=== PATIENT | female | born 1950 | race Caucasian/White ===

== ENCOUNTER 2017-09-07 14:32 | Observation (INO) ==
[2017-09-07 15:50] LABS: Basophils # 0.1 K/mcL (0.0-0.2); Basophils % 0.7 %; Eosinophils # 0.2 K/mcL (0.0-0.6); Eosinophils % 1.8 %; Hematocrit 44.2 % (35.3-44.9); Hemoglobin 13.9 g/dL (11.5-15.4); Immature Granulocytes % 0.2 % (0-4); Lymphocytes # 1.8 K/mcL (0.6-4.6); Lymphocytes % 20.1 %; Mean Corpuscular HGB Conc 31.4 g/dL (31.6-35.5); Mean Corpuscular Hemoglobin 28.1 pg (28.0-33.3); Mean Corpuscular Volume 89.3 fL (83.0-100.0); Mean Platelet Volume 10.3 fL (9.4-12.4); Monocytes # 0.7 K/mcL (0.0-1.3); Monocytes % 8.2 %; Platelet Count 289 K/mcL (140-400); Red Blood Count 4.95 M/mcL (3.82-4.97); Red Cell Distribution Width 13.7 % (11.5-14.5)
[2017-09-07 16:03] LABS: Carbon Dioxide 28 mEq/L (23-29); Chloride 105 mEq/L (98-107); Potassium 3.9 mEq/L (3.5-5.1); Sodium 138 mEq/L (136-145)
[2017-09-07 16:09] LABS: BUN/Creatinine Ratio 19 (6-26); Blood Urea Nitrogen 17 mg/dL (8-23); Glucose 89 mg/dL (70-105); Osmolality,Calculated 287 (280-300); eGFR For African Americans > 60 (> 60); eGFR For Non-African Americans > 60 (> 60)
[2017-09-07] MEDS ORDERED: Aspirin 81 MG TAB.CHEW PO ONE (17:14)
--- NOTE | 2017-09-07 17:26 | Emergency Department Note ---
Disposition Clinical Impression: Chest pain Qualifiers: Chest pain type: unspecified Qualified Code(s): R07.9 - Chest pain, unspecified Disposition: Admitted As Inpatient Condition: Good Referrals: Gi Greene MD [Primary Care Provider] - Forms: ED Satisfaction Letter Time of Disposition: 17:32 Chest Pain HPI - General Chief Complaint: ED Chest Pain Stated Complaint: CP x2 weeks Time Seen by Provider: 09/07/17 16:20 Source: patient Mode of arrival: ambulatory Limitations: no limitations Vital Signs Reviewed: Yes Nursing Notes Reviewed: Yes - History of Present Illness HPI Narrative: 67-year-old with a history of chest pain for last 2 weeks off and on. Today the pain was worse so she took nitroglycerin that she had previously and the pain got better. Patient states she had a stress test about 3 years ago nothing since. She had a catheter about 16 years ago that showed some disease. Pt complaint: chest pain Onset (ago): week(s) Duration: intermittent (2) Onset: during rest, during exertion Pain Location: substernal, left chest Severity: moderate Severity scale (1-10): 4 Quality: tightness, aching, heaviness Pain Radiation: none Improves with: nitroglycerin Worsens with: nothing Associated symptoms: Denies: fever, cough Treatments prior to arrival chest pain: nitroglycerin - Related Data Allergies Allergy/AdvReac Type Severity Reaction Status Date / Time Iodinated Contrast- Oral and Allergy Hives Verified 09/07/17 14:45 IV Dye metronidazole [From Flagyl] Allergy Hives Verified 09/07/17 14:45 prednisone Allergy Hives Verified 09/07/17 14:45 Sulfa (Sulfonamide Allergy Hives Verified 09/07/17 14:45 Antibiotics) All systems ED: reviewed and negative except as stated. Constitutional: Denies: fever, chills, weakness, weight change Eyes: Denies: eye pain, eye discharge, vision change ENT ED: Denies: ear pain, throat pain, dental pain, hearing loss, epistaxis, congestion, dysphagia Cardiovascular: Reports: chest pain. Denies: palpitations, dyspnea on exertion , edema, syncope Respiratory: Denies: cough, dyspnea, wheezes, hemoptysis, stridor Gastrointestinal: Denies: abdominal pain, nausea, vomiting, diarrhea, constipation, hematemesis, melena, hematochezia Genitourinary: Denies: dysuria, frequency, hematuria, discharge Musculoskeletal: Denies: back pain, neck pain, arthralgia, myalgia Integumentary: Denies: rash, abrasion, lesions Neurological: Denies: headache, weakness, numbness, paresthesias, confusion, abnormal gait, vertigo Psychiatric: Denies: anxiety, depression, suicidal thoughts, homicidal thoughts , auditory hallucinations, visual hallucinations Endocrine: Denies: fatigue Hematological/Lymphatic: Denies: easy bleeding, easy bruising Allergic/Immunologic: Denies: facial swelling, urticaria Chest Pain PMH - Past Medical History Medical history: Reports: fibromyalgia, GERD, thyroid disease - Social History Smoking Status: Never smoker Physical Exam - General Limitations: no limitations General appearance: alert, in no apparent distress - Head Head exam: atraumatic, normocephalic, normal inspection - Eye Eye exam: Present: normal appearance, PERRL, EOMI - ENT ENT exam: normal exam, normal oropharynx, mucous membranes moist - Neck Neck exam: Present: normal inspection, full ROM, trachea midline - Chest Chest inspection: Present: normal inspection, symmetric chest wall rise - Respiratory Respiratory exam: Present: normal lung sounds bilaterally - Cardiovascular Cardiovascular exam: Present: regular rate, normal rhythm, normal heart sounds - Abdominal Exam Abdominal exam: Present: soft, Non-Tender. Absent: tenderness, distention, guarding, rebound, rigidity - Extremities Exam Extremities exam: Present: normal inspection, full ROM. Absent: tenderness, pedal edema - Expanded Lower Extremity Exam Neurovascular/Tendon exam: Absent: motor deficit, sensory deficit, tendon deficit Gait: observed and normal - Back Exam Back exam: Present: normal inspection, full ROM. Absent: tenderness - Neurological Exam Neurological exam: Present: alert, oriented X3 - Psychiatric Psychiatric exam: Present: normal affect, normal mood - Skin Skin exam: Present: warm, dry, intact, normal color Course - Reevaluation(s) Reevaluation #1: 67-year-old with no previous history comes in complaining of a two-week period in which she's had recurrent chest pain not really exertionally related. She's had no recent cardiac workup. Factors include age. Her description is worrisome for cardiac disease as she has a heaviness or tightness in her chest. She did take nitroglycerin which improved her chest pain today. Time: 17:32 - Consultations Consultation #1: Discussed with , admit. Time: 17:32 Vital Signs Temperature 98.4 F 09/07/17 14:38 Pulse Rate 81 09/07/17 14:38 Respiratory Rate 18 09/07/17 14:38 Blood Pressure 127/79 09/07/17 14:38 O2 Sat by Pulse Oximetry 96 09/07/17 14:38 Temperature 98.4 F 09/07/17 14:38 Pulse Rate 80 09/07/17 17:36 Respiratory Rate 16 09/07/17 17:36 Blood Pressure 127/73 09/07/17 17:36 O2 Sat by Pulse Oximetry 98 09/07/17 17:36 Oxygen Delivery Oxygen Delivery Room Air Chest Pain - Lab Data Lab results reviewed: Yes I reviewed the patient's lab results. Result diagrams: 09/07/17 15:34 09/07/17 15:34 Lab Results 09/07/17 09/07/17 09/07/17 Range/Units 15:34 15:34 15:34 WBC 8.8 (4.3-11.1) K/mcL RBC 4.95 (3.82-4.97) M/mcL Hgb 13.9 (11.5-15.4) g/dL Hct 44.2 (35.3-44.9) % MCV 89.3 (83.0-100.0) fL MCH 28.1 (28.0-33.3) pg MCHC 31.4 L (31.6-35.5) g/dL RDW 13.7 (11.5-14.5) % Plt Count 289 (140-400) K/mcL MPV 10.3 (9.4-12.4) fL Immature Gran % 0.2 (0-4) % Seg Neutrophils % 69.0 % Lymphocytes % 20.1 % Monocytes % 8.2 % Eosinophils % 1.8 % Basophils % 0.7 % Neutrophils # 6.0 (1.6-8.9) K/mcL Lymphocytes # 1.8 (0.6-4.6) K/mcL Monocytes # 0.7 (0.0-1.3) K/mcL Eosinophils # 0.2 (0.0-0.6) K/mcL Basophils # 0.1 (0.0-0.2) K/mcL Sodium 138 (136-145) mEq/L Potassium 3.9 (3.5-5.1) mEq/L Chloride 105 (98-107) mEq/L Carbon Dioxide 28 (23-29) mEq/L BUN 17 (8-23) mg/dL Creatinine 0.91 (0.60-1.20) mg/dL Est GFR ( Amer) > 60 (> 60) Est GFR (Non-Af Amer) > 60 (> 60) BUN/Creatinine Ratio 19 (6-26) Glucose 89 (70-105) mg/dL Calculated Osmolality 287 (280-300) Calcium 9.0 (8.6-10.3) mg/dL Troponin I < 0.03 (< 0.04) ng/mL - Radiology Data Radiology results reviewed: Yes I reviewed the patient's radiology results. Chest X-Ray 09/07/17 14:46 IMPRESSION: No acute cardiopulmonary findings. D/ / Lisa White MD / Lisa White MD Interpreting Provider: Lisa White MD - EKG Data EKG attestation: Yes I reviewed and interpreted this EKG. EKG shows normal: sinus rhythm Rate: normal Rhythm: NSR Interpretation: no acute changes Heart Score - Score History: Moderately Suspicious EKG: Non Specific repolarisation Disturbance Age: Greater than 65 Risk Factors: 1-2 risk factors Troponin: Less than normal limit HEART Score Total: 5
[2017-09-07] MEDS ORDERED: Nitroglycerin 0.4 MG TAB.SUBL SL PRN (23:14)
--- NOTE | 2017-09-07 23:39 | Internal Med History&Physical ---
<Lee Ann Castro - Last Filed: 09/07/17 23:47> Date of Encounter: 09/07/17 Time of Encounter: 23:19 Assessment and Plan (1) Chest pain Current visit: Yes Status: Acute The patient is [id number] troponin negative we will continue to trend Continuous cardiac monitoring Cardiac echo Aspirin, statin-we will check lipid profile Cardiac stress in a.m.-nothing by mouth after midnight Nitroglycerin as needed for chest pain Qualifiers: Chest pain type: unspecified Qualified Code(s): R07.9 - Chest pain, unspecified (2) Thyroid disease Current visit: No Status: Chronic We will check TSH and continue with Synthroid (3) GERD (gastroesophageal reflux disease) Current visit: No Status: Chronic Continue with Prilosec Qualifiers: Esophagitis presence: esophagitis presence not specified Qualified Code(s) : K21.9 - Gastro-esophageal reflux disease without esophagitis Internal Medicine - H&P: HPI Chief complaint: CP Admitted From: Home History of present illness: Ms. Beckham is a 67 year old female past history of fibromyalgia GERD IBS arthritis and thyroid disease. Patient has been experiencing midsternal nonradiating chest pain which she describes as sharp. The pain has been recurrent nonexertional with associated symptoms of shortness of breath and nausea. There are no aggravating factors, she states it has improved with taking Xanax and going to sleep. Today she continued to experience chest pain she described as a heaviness pressure which staining in her left breast nonradiating she did have some nausea. She did take nitroglycerin which did ease her pain. She denies any past cardiac history she did have a stress test approximately 3 years ago which she was unable to complete she states she had a cardiac catheterization 16 years ago She presented to the ER with the above complaints. ER workup was essentially negative troponin 0.03 negative chest x- ray EKG normal sinus rhythm. She has been admitted for further work up evaluation. Patient denies any chest pain shortness of breath she is healing with his hemoptysis time. Did review this case with Dr. Lara who did agree with plan Past Med Surg Social Fam HX - Past Medical History Medical history: fibromyalgia, GERD, thyroid disease Psychiatric history: no psych history - Past Surgical History Surgical History: herniorrhaphy - Social History Smoking Status: Never smoker Smokeless Tobacco Status: No Alcohol use: none Drug use: none - Family History Mother Living Status: Cause of : cancer Hx Family Cardiac Disorders: Yes (htn) Hx Family Respiratory Disorders: No Hx Family Cancer: Yes Hx Family GI Disorders: No Hx Family Genitourinary Disorders: No Hx Family Endocrine Disorder: No Hx Family Musculoskeletal Disorders: No Hx Family Neuromuscular Disorders: No Hx Family Neurologic Disorders: No Hx Family HEENT Disorders: No Hx Family Autoimmune Disorders: No Hx Family Reproductive Disorders: No Hx Family Psychosocial Disorders: No Hx Family Medical Disorders: No Father Living Status: Cause of : ca Hx Family Cardiac Disorders: No Hx Family Respiratory Disorders: No Hx Family Cancer: Yes (colon, bone) Hx Family GI Disorders: No Hx Family Genitourinary Disorders: No Hx Family Endocrine Disorder: No Hx Family Musculoskeletal Disorders: No Hx Family Neuromuscular Disorders: No Hx Family Neurologic Disorders: No Hx Family HEENT Disorders: No Hx Family Autoimmune Disorders: No Hx Family Reproductive Disorders: No Hx Family Psychosocial Disorders: No Hx Family Medical Disorders: No Internal Medicine - H&P: Meds Acetaminophen [Tylenol] 500 mg PO Q6H PRN 09/07/17 [History] Diclofenac Sodium [Voltaren] 2 - 4 gm TP QID PRN 09/07/17 [History] Dicyclomine [Bentyl] 10 mg PO DAILY 09/07/17 [History] Estradiol 0.5 mg PO DAILY 09/07/17 [History] Furosemide [Lasix] 20 mg PO DAILY PRN 09/07/17 [History] Levothyroxine [Synthroid] 75 mcg PO 0630 09/07/17 [History] Mv,Iron,Min/Folic Acid/Biotin [Hair, Skin & Nails Softgel] 66.7 mcg PO DAILY 10/24 [History] Omeprazole [PriLOSEC] 40 mg PO DAILY 09/07/17 [History] Potassium Chloride [Klor-Con 10] 10 meq PO DAILY PRN 09/07/17 [History] clonazePAM [Klonopin] 1 mg PO HS 09/07/17 [History] 3 Allergy/AdvReac Type Severity Reaction Status Date / Time Iodinated Contrast- Oral and Allergy Hives Verified 09/07/17 14:45 IV Dye menthol [From BenGay] Allergy Hives Verified 09/07/17 19:05 methyl salicylate Allergy Hives Verified 09/07/17 19:05 [From BenGay] metronidazole [From Flagyl] Allergy Hives Verified 09/07/17 14:45 prednisone Allergy See Verified 09/07/17 19:06 Comments Sulfa (Sulfonamide Allergy Hives Verified 09/07/17 14:45 Antibiotics) All Systems PM: A 10-system review of systems was performed and is negative for pertinent findings except as documented above in the HPI. - Constitutional Constitutional: no chills, no fever(s), no night sweats - EENT Eyes: no change in vision, no discharge, no pain, no photophobia Nose, mouth and throat: no dysphagia, no nasal discharge, no neck pain, no sore throat - Cardiovascular Cardiovascular ROS IM: chest pain, dyspnea, palpitations - Respiratory Respiratory: no cough, no dyspnea, no wheezing, no excessive phlegm production - Gastrointestinal Gastrointestinal: nausea - Genitourinary Genitourinary: no change in urinary stream, no dysuria, no flank pain, no hematuria - Musculoskeletal Musculoskeletal ROS IM: no numbness, no tingling - Integumentary Integumentary IM: no rash, no unusual bruising - Neurological Neurological ROS: no confusion, no convulsions, no focal weakness, no numbness, no tingling, no tremor(s) - Hematologic/Lymphatic Hematologic/Lymphatic: no easy bruising - Constitutional Vitals: Temp Pulse Resp BP Pulse Ox 98.7 F 77 17 109/78 95 09/07/17 21:09 09/07/17 21:09 09/07/17 21:09 09/07/17 21:09 09/07/17 21:09 General appearance: Present: A&O X 3 - Head Head exam: Present: atraumatic, normocephalic - Eye Eye exam: Present: EOMI, normal appearance, PERRL, conjuntiva pink, sclera anicteric Pupils: Present: PERRL - Neck Neck exam general surgery: Present: supple, trachea midline. Absent: lymphadenopathy - Respiratory Respiratory exam: Present: CTAB. Absent: accessory muscle use, rales, rhonchi, wheezes - Cardiovascular Cardiovascular exam: Present: RRR, +S1, +S2. Absent: diastolic murmur, gallop, rubs, systolic murmur - GI/Abdominal GI/Abdominal exam: Present: normal bowel sounds, soft, no peritoneal signs. Absent: distended, tenderness - Extremities Exam Extremities exam: Present: warm, radial pulses palpable and symmetrical. Absent : calf tenderness, cyanotic, pedal edema - Neurological Exam Neurological exam: Present: CN II-XII intact, oriented X3, no focal deficits. Absent: pronater drift, facial droop, speech deficit - Skin Skin exam: Present: dry, intact Internal Med - H&P Results - Labs CBC & Chem 7: 09/07/17 15:34 09/07/17 15:34 - EKG Data EKG shows normal: sinus rhythm - EKG Data Prior EKG available for review: yes When compared to previous EKG: there is no significant change - Diagnostic Studies Other Images Additional comments: Chest X-Ray 09/07/17 14:46 IMPRESSION: No acute cardiopulmonary findings. D/ / Lisa White MD / Lisa White MD Interpreting Provider: Lisa White MD <Ismael Lara - Last Filed: 09/08/17 03:11> Date of Encounter: 09/08/17 Internal Medicine - H&P: HPI History of present illness: Ms. Beckham is a 67 year old female All Systems PM: A 10-system review of systems was performed and is negative for pertinent findings except as documented above in the HPI. - Constitutional Vitals: Temp Pulse Resp BP Pulse Ox 96.1 F L 84 17 118/72 94 09/07/17 23:25 09/07/17 23:25 09/07/17 23:25 09/07/17 23:25 09/07/17 23:25 Internal Med - H&P Results - Labs CBC & Chem 7: 09/07/17 15:34 09/07/17 15:34 - Attending Attestation I have seen and examined pt independently. I have discussed with DEANN Castro regarding the management plan. Agree with the documentation.
[2017-09-08] MEDS: clonazePAM 1 MG TABLET PO SCH ×2 (00:31→20:27)
[2017-09-08 05:51] LABS: Basophils # 0.1 K/mcL (0.0-0.2); Basophils % 0.9 %; Eosinophils # 0.2 K/mcL (0.0-0.6); Hemoglobin 12.8 g/dL (11.5-15.4); Immature Granulocytes % 0.4 % (0-4); Lymphocytes # 2.2 K/mcL (0.6-4.6); Lymphocytes % 23.2 %; Mean Corpuscular Hemoglobin 28.4 pg (28.0-33.3); Mean Corpuscular Volume 88.7 fL (83.0-100.0); Mean Platelet Volume 10.7 fL (9.4-12.4); Monocytes % 10.2 %; Neutrophils # 5.9 K/mcL (1.6-8.9); Platelet Count 258 K/mcL (140-400); Red Blood Count 4.51 M/mcL (3.82-4.97); Red Cell Distribution Width 13.7 % (11.5-14.5); Segmented Neutrophils % 63.3 %
[2017-09-08 06:02] LABS: BUN/Creatinine Ratio 24 (6-26); Blood Urea Nitrogen 19 mg/dL (8-23); Calcium 8.9 mg/dL (8.6-10.3); Carbon Dioxide 26 mEq/L (23-29); Chloride 107 mEq/L (98-107); Glucose 85 mg/dL (70-105); Osmolality,Calculated 290 (280-300); Potassium 3.9 mEq/L (3.5-5.1); Sodium 139 mEq/L (136-145); Triglycerides 65 mg/dL (< 150); eGFR For African Americans > 60 (> 60); eGFR For Non-African Americans > 60 (> 60)
[2017-09-08 06:03] LABS: Chol/HDL Ratio 2.2 (0-4.9); Cholesterol 148 mg/dL (< 200); HDL Cholesterol 66 mg/dL (40-59); LDL Cholesterol,Calculated 69 mg/dL (0-99)
[2017-09-08] MEDS ORDERED: Regadenoson 0.4 MG/5 ML SYRINGE IVP ONE (06:11)
[2017-09-08 06:21] LABS: Thyroid Stimulating Hormone 4.134 mcIU/mL (0.340-5.600)
[2017-09-08] MEDS: Aspirin 81 MG TAB.CHEW PO SCH ×2 (09:06→11:58)
--- NOTE | 2017-09-08 12:18 | Internal Med Progress Note ---
Date of Encounter: 09/08/17 Time of Encounter: 12:16 - Assessment and plan (1) Chest pain Current Visit: Yes Status: Acute Assessment and plan: Patient is presently admitted for chest pain. She was evaluated by cardiology and underwent catheterization around 16 years back. Echocardiogram: Ejection fraction 65%, mild diastolic dysfunction, mild pulmonary hypertension, Awaiting for stress test completion. This will be 2 day stress test Qualifiers: Chest pain type: unspecified Qualified Code(s): R07.9 - Chest pain, unspecified (2) Thyroid disease Current Visit: No Status: Chronic Assessment and plan: Stable (3) GERD (gastroesophageal reflux disease) Current Visit: No Status: Chronic Assessment and plan: If patient's stress test is normal then patient might need a GI evaluation for EGD as outpatient. Qualifiers: Esophagitis presence: esophagitis presence not specified Qualified Code(s) : K21.9 - Gastro-esophageal reflux disease without esophagitis - Subjective Interval history: Patient seen and examined. chart reviewed. Patient is comfortably lying in bed. Patient denies any chest pain, shortness of breath, nausea, vomiting, abdominal pain, dizziness and diarrhea. - Constitutional Vitals: Temp Pulse Resp BP Pulse Ox 97.4 F L 70 16 102/54 92 09/08/17 11:36 09/08/17 11:36 09/08/17 11:36 09/08/17 11:36 09/08/17 11:36 General appearance: Present: A&O X 3 - Head Head exam: Present: atraumatic, normocephalic - Eye Eye exam: Present: PERRL, conjuntiva pink, sclera anicteric Pupils: Present: PERRL - Neck Neck exam general surgery: Present: supple, trachea midline. Absent: lymphadenopathy - Respiratory Respiratory exam: Present: CTAB. Absent: accessory muscle use, rales, rhonchi, wheezes - Cardiovascular Cardiovascular exam: Present: RRR, +S1, +S2. Absent: diastolic murmur, gallop, rubs, systolic murmur - GI/Abdominal GI/Abdominal exam: Present: normal bowel sounds, soft, no peritoneal signs. Absent: distended, tenderness - Extremities Exam Extremities exam: Present: warm, radial pulses palpable and symmetrical. Absent : calf tenderness, cyanotic, pedal edema - Neurological Exam Neurological exam: Present: CN II-XII intact, oriented X3, no focal deficits. Absent: pronater drift, facial droop, speech deficit - Skin Skin exam: Present: dry, intact Internal Medicine: Result - Labs CBC & Chem 7: 09/08/17 04:41 09/08/17 04:41 Labs: Short CBC 09/08/17 Range/Units 04:41 WBC 9.3 (4.3-11.1) K/mcL Hgb 12.8 (11.5-15.4) g/dL Hct 40.0 (35.3-44.9) % Plt Count 258 (140-400) K/mcL Neutrophils # 5.9 (1.6-8.9) K/mcL BMP 09/08/17 04:41 Sodium 139 Potassium 3.9 Chloride 107 Carbon Dioxide 26 BUN 19 Creatinine 0.79 Glucose 85 Calcium 8.9 Cardiac Enzymes 09/08/17 Range/Units 05:33 Troponin I < 0.03 (< 0.04) ng/mL - Impressions Impressions Echocardiogram 09/08/17 23:14 Impressions: LVEF 65%. Mild left ventricular diastolic dysfunction. Normal right ventricular structure and function. No significant valvular dysfunction. No pulmonary hypertension. Left Ventricular Wall Motion: Rest Echo Findings All wall segments showed normal motion. Findings: Study Quality * Technically adequate exam. ECG Findings * Normal sinus rhythm. Left Ventricle * LVEF 65%. * Mild left ventricular diastolic dysfunction. * Normal LV chamber size, wall thickness and function. Right Ventricle * Normal right ventricular structure and function. Left Atrium * Normal left atrial size. Right Atrium * Normal right atrial size. Aortic Valve * No aortic regurgitation. * Aortic valve not well visualized. * No aortic stenosis. Mitral Valve * No mitral regurgitation. * Normal mitral valve structure. * No mitral stenosis. Tricuspid Valve * Tricuspid valve not well visualized. * No tricuspid regurgitation. * Estimated RA pressure is 3 mmHg. * Estimated RVSP is 13 mmHg. * No pulmonary hypertension. Pulmonic Valve * Pulmonic valve is not well visualized. * No pulmonic stenosis. * No pulmonic regurgitation. Pulmonary Artery * Pulmonary artery not well visualized. Aorta * Normally sized aortic root. Pericardium * There is no pericardial effusion present. Interatrial Septum * No evidence of PFO by color Doppler. IVC * Normal IVC dimensions and inspiratory collapse. Consult Discharge Plan - Plan Referrals: Gi Greene MD [Primary Care Provider] -
--- NOTE | 2017-09-08 16:35 | Electrocardiograph Report ---
[address] [place] [address] Test Date: 2017-09-07 Pat Name: Katelyn Beckham Department: 104 Room: 3B24 Gender: F Certified Personal Chef: STEVE : 1950 Requested By: Kellen See Order Number: [id number] Reading MD: Magui Lynne Measurements Intervals [place] Rate: 76 P: 24 VT: 178 QRS: 10 QRSD: 78 T: 14 QT: 348 QTc: 379 Interpretive Statements SINUS RHYTHM POSSIBLE ANTERIOR MYOCARDIAL INFARCTION, PROBABLY OLD Electronically Signed On 09-08-2017 16:33:22 EST by Magui Lynne
[2017-09-09 04:11] LABS: Basophils # 0.1 K/mcL (0.0-0.2); Basophils % 1.1 %; Eosinophils # 0.2 K/mcL (0.0-0.6); Eosinophils % 2.1 %; Hemoglobin 12.3 g/dL (11.5-15.4); Immature Granulocytes % 0.1 % (0-4); Lymphocytes # 2.5 K/mcL (0.6-4.6); Mean Corpuscular HGB Conc 32.4 g/dL (31.6-35.5); Mean Corpuscular Hemoglobin 28.5 pg (28.0-33.3); Mean Platelet Volume 10.2 fL (9.4-12.4); Monocytes # 0.8 K/mcL (0.0-1.3); Monocytes % 9.7 %; Neutrophils # 4.3 K/mcL (1.6-8.9); Platelet Count 256 K/mcL (140-400); Red Blood Count 4.32 M/mcL (3.82-4.97); Red Cell Distribution Width 13.7 % (11.5-14.5)
[2017-09-09 04:29] LABS: Alanine Aminotransferase 20 Units/L (7-52); Albumin 3.5 g/dL (3.5-5.7); Albumin/Globulin Ratio 1.3 (1.1-2.2); Alkaline Phosphatase 58 Units/L (34-104); Aspartate Amino Transferase 20 Units/L (13-39); BUN/Creatinine Ratio 18 (6-26); Bilirubin,Total 0.5 mg/dL (0.3-1.0); Blood Urea Nitrogen 15 mg/dL (8-23); Calcium 8.5 mg/dL (8.6-10.3); Carbon Dioxide 25 mEq/L (23-29); Chloride 108 mEq/L (98-107); Globulin 2.6 g/dL (2.4-3.5); Glucose 91 mg/dL (70-105); Osmolality,Calculated 286 (280-300); Potassium 3.9 mEq/L (3.5-5.1); Sodium 138 mEq/L (136-145); Total Protein 6.1 g/dL (6.4-8.9); eGFR For African Americans > 60 (> 60); eGFR For Non-African Americans > 60 (> 60)
[2017-09-09] MEDS: Aspirin 81 MG TAB.CHEW PO SCH (08:34)
[2017-09-09 12:21] VITALS: BP 106/71
--- NOTE | 2017-09-09 12:47 | Discharge Summary ---
Date of Encounter: 09/09/17 Time of Encounter: 12:45 - Discharge Diagnosis (1) Chest pain Priority: Primary Status: Acute Qualifiers: Chest pain type: unspecified Qualified Code(s): R07.9 - Chest pain, unspecified (2) Thyroid disease Priority: Secondary Status: Chronic (3) GERD (gastroesophageal reflux disease) Priority: Secondary Status: Chronic Qualifiers: Esophagitis presence: esophagitis presence not specified Qualified Code(s) : K21.9 - Gastro-esophageal reflux disease without esophagitis - Discharge Medications Prescriptions: Nitroglycerin 0.4 mg SL Q5MIN PRN #30 tab.subl PRN Reason: Chest Pain Aspirin 81 mg PO DAILY #30 tab.chew Atorvastatin [Lipitor] 40 mg PO HS #30 tablet Home Medications: Acetaminophen [Tylenol] 500 mg PO Q6H PRN 09/07/17 [History] Diclofenac Sodium [Voltaren] 2 - 4 gm TP QID PRN 09/07/17 [History] Dicyclomine [Bentyl] 10 mg PO DAILY 09/07/17 [History] Estradiol 0.5 mg PO DAILY 09/07/17 [History] Furosemide [Lasix] 20 mg PO DAILY PRN 09/07/17 [History] Levothyroxine [Synthroid] 75 mcg PO 0630 09/07/17 [History] Mv,Iron,Min/Folic Acid/Biotin [Hair, Skin and Nails Softgel] 66.7 mcg PO DAILY 09/07/17 [History] Omeprazole [PriLOSEC] 40 mg PO DAILY 09/07/17 [History] Potassium Chloride [Klor-Con 10] 10 meq PO DAILY PRN 09/07/17 [History] clonazePAM [Klonopin] 1 mg PO HS 09/07/17 [History] Aspirin 81 mg PO DAILY #30 tab.chew 09/09/17 [Rx] Atorvastatin [Lipitor] 40 mg PO HS #30 tablet 09/09/17 [Rx] Nitroglycerin 0.4 mg SL Q5MIN PRN #30 tab.subl 09/09/17 [Rx] Allergies/Adverse Reactions: 3 Allergy/AdvReac Type Severity Reaction Status Date / Time Iodinated Contrast- Oral and Allergy Hives Verified 09/07/17 14:45 IV Dye menthol [From BenGay] Allergy Hives Verified 09/07/17 19:05 methyl salicylate Allergy Hives Verified 09/07/17 19:05 [From BenGay] metronidazole [From Flagyl] Allergy Hives Verified 09/07/17 14:45 prednisone Allergy See Verified 09/07/17 19:06 Comments Sulfa (Sulfonamide Allergy Hives Verified 09/07/17 14:45 Antibiotics) Procedures/tests Complete & Pending: Procedures Performed prior 72 hours Category Date Time Status NM christina perf SPECT multi [NM] Routine Exams 09/07/17 23:17 Taken EV echocardiogram Routine Y 09/08/17 23:14 Completed SP pharm nuclear stress Routine Y 09/08/17 07:45 Completed Date of admission: 09/07/17 18:49 Primary care physician: Gi Allen Discharging clinician: Adriel Grove - Patient Status Disposition: Home, Self-Care Condition: Good Overall status at discharge: patient is progressing back to baseline - Discharge Instructions Follow Up With: Gi Greene MD [Primary Care Provider] - Primitivo Martinez MD [Partnered Physician] - - Diet and Activity Activity: increase activity as tolerated Diet: low fat, low cholesterol Interval History: Ms. Beckham is a 67 year old female past history of fibromyalgia GERD IBS arthritis and thyroid disease. Patient has been experiencing midsternal nonradiating chest pain which she describes as sharp. The pain has been recurrent nonexertional with associated symptoms of shortness of breath and nausea. There are no aggravating factors, she states it has improved with taking Xanax and going to sleep. Today she continued to experience chest pain she described as a heaviness pressure which staining in her left breast nonradiating she did have some nausea. She did take nitroglycerin which did ease her pain. She denies any past cardiac history she did have a stress test approximately 3 years ago which she was unable to complete she states she had a cardiac catheterization 16 years ago She presented to the ER with the above complaints. ER workup was essentially negative troponin 0.03 negative chest x- ray EKG normal sinus rhythm. She has been admitted for further work up evaluation. Hospital course: Patient was hospitalized. Chest pain workup was done as per protocol. Troponin 3: Negative Echocardiogram: Ejection fraction 65%. No pulmonary hypertension. No valvular dysfunction. Stress test: Gated EF 72%, negative for any ischemia or infarct Plan: Patient can go home today Follow up with primary care. Patient should take aspirin/statin. Patient may need an outpatient GI referral to rule out GERD Plan of care discussed with the patient, she verbalized understanding - Time Spent with Patient Total time spent providing and/or coordinating discharge services: - Constitutional Vitals: Temp Pulse Resp BP Pulse Ox 97.6 F 66 16 106/71 97 09/09/17 12:20 09/09/17 12:20 09/09/17 12:20 09/09/17 12:20 09/09/17 12:20 General appearance: Present: A&O X 3 - Head Head exam: Present: atraumatic, normocephalic - Eye Eye exam: Present: PERRL, conjuntiva pink, sclera anicteric Pupils: Present: PERRL - Neck Neck exam general surgery: Present: supple, trachea midline. Absent: lymphadenopathy - Respiratory Respiratory exam: Present: CTAB. Absent: accessory muscle use, rales, rhonchi, wheezes - Cardiovascular Cardiovascular exam: Present: RRR, +S1, +S2. Absent: diastolic murmur, gallop, rubs, systolic murmur - GI/Abdominal GI/Abdominal exam: Present: normal bowel sounds, soft, no peritoneal signs. Absent: distended, tenderness - Extremities Exam Extremities exam: Present: warm, radial pulses palpable and symmetrical. Absent : calf tenderness, cyanotic, pedal edema - Neurological Exam Neurological exam: Present: CN II-XII intact, oriented X3, no focal deficits. Absent: pronater drift, facial droop, speech deficit - Skin Skin exam: Present: dry, intact
== END 2017-09-09 14:55 | disposition home or self-care (01) ==
LOC: 3BNU 14:32 → EMEROO 14:32 → 3BNU 20:11
PROVIDERS: ADMIT Internal Medicine; ATTEND Registered Nurse